=== PATIENT | male | born 1960 | race Caucasian/White ===

== ENCOUNTER 2017-03-14 16:01 | Emergency (ER) | payer OTHER ==
--- NOTE | 2017-03-14 16:42 | EDPHY ---
H & P Time Seen by Provider: 03/14/17 16:28 HPI/ROS: CHIEF COMPLAINT: Difficulty staying awake. HISTORY OF PRESENT ILLNESS: This patient is a 56 year old male complaining of fatigue and difficulty staying awake since yesterday. He has a history of pulmonary embolism, and has right posterior shoulder pain similar to his prior PE, which began around the time of his arrival here. He generally take naps due to a difficult work schedule, but states his current fatigue feels different and he is sleeping much more than usual. No chest pain or shortness of breath. No recent illness or changes in medication. He had a left leg ultrasound two months ago following an episode of calf pain which was negative for DVT. REVIEW OF SYSTEMS: Constitutional: No fever, no chills Eyes: No visual changes ENT: No sore throat Respiratory: No cough, no shortness of breath Cardiac: No chest pain Gastrointestinal: No nausea, no vomiting, no abdominal pain Genitourinary: No hematuria, no dysuria Musculoskeletal: No leg pain or swelling Skin: No rash Neurological: No headache, no numbness, no weakness Psychiatric: No depression Past Medical/Surgical History: 1. Pulmonary embolism (formerly on Coumadin, not currently anticoagulated) 2. Pneumonia 3. GERD 4. Hypertension (Lisinopril) 5. Hyperlipidemia (Atorvastatin) 5. Bipolar (Trileptal) 6. Depression (Effexor) 7. Cholecystectomy Social History: at bedside. Smoking Status: Never smoked Physical Exam: General Appearance: Alert, pleasant Eyes: Pupils equal and round, no conjunctival pallor or injection ENT, Mouth: Mucous membranes moist Neck: Normal inspection Respiratory: Lungs are clear to auscultation Cardiovascular: Regular rate and rhythm Gastrointestinal: Abdomen is soft and non- tender Neurological: A&O, nonfocal, normal gait Skin: Warm and dry, no rash Extremities: Nontender, no pedal edema Psychiatric: Mood and affect normal Constitutional: Initial Vital Signs Temperature (C) 36.5 C 03/14/17 16:01 Heart Rate 82 03/14/17 16:01 Respiratory Rate 18 03/14/17 16:01 Blood Pressure 119/68 03/14/17 16:01 O2 Sat (%) 95 03/14/17 16:01 O2 Delivery Mode Room Air Allergies/Adverse Reactions: No Known Allergies Allergy (Verified 03/14/17 16:15) Home Medications: Medication Instructions Recorded Lansoprazole [Lansoprazole 30 mg 30 mg PO DAILY@32904/13/15 tab] Oxcarbazepine [Trileptal] 600 mg PO BID@04/13/15 Venlafaxine Xr [Effexor Xr 75MG 75 mg PO DAILY@32904/13/15 (*)] lamOTRIGine [Lamotrigine] 200 mg PO DAILY@32904/13/15 Albuterol [Proventil Inhaler HFA 2 puffs IH Q4HRS PRN 05/15/16 (*)] Atorvastatin Calcium [Lipitor 40 40 mg PO DAILY@212905/15/16 mg (*)] Cholecalciferol Vit D3 [Vitamin D3 4,000 units PO DAILY@32905/15/16 (*)] Fish Oil/Dha/Epa [Fish Oil 1,200 1 each PO BID@329,212905/15/16 mg Fish Oil] Lisinopril [Zestril 40 mg (*)] 40 mg PO DAILY@212905/15/16 Acetaminophen [Tylenol 325mg (*)] 650 mg PO Q4 PRN #0 tab 05/16/16 Medical Decision Making - Diagnostics Imaging: Discussed imaging studies w/ call center representative Radiologist ED Course/Re-evaluation: 56 year old male presenting with two day history of fatigue. In the past, fatigue has been a presenting symptom of medical illness for him, for instance when he had a pulmonary embolism. Given that he has similar right shoulder pain to his prior PE, CT pulmonary angiogram ordered to rule out PE. 17:50 No evidence of PE on CT scan. Reassessed patient. CT results discussed. Plan to discharge home in good condition. He will follow up with his primary care provider Thursday for continuing symptoms. The patient is comfortable with this plan. Differential Diagnosis: Includes but not limited to pulmonary embolism, electrolyte imbalance, infectious processes, medication effect. - Data Points Laboratory Results: Laboratory Results 03/14/17 16:35 03/14/17 16:35 Departure - Departure Disposition: Home, Routine, Self-Care Clinical Impression: Fatigue Condition: Good Instructions: Fatigue (ED) Additional Instructions: 1. Follow up with your primary care provider on Thursday if your fatigue persists. 2. Return to the Emergency Department if you develop shortness of breath, chest pain, fever, or other worsening of condition. Referrals: Zee Nunez, PAC [Primary Care Provider] - As per Instructions Report Scribed for: Lanie Morris Report Scribed by: Phoebe Atwood Date of Report: 03/14/17 Time of Report: 17:52 Physician Review and Approval Statement: 03/14/17 17:52 Portions of this note were transcribed by a district medical examiner. I personally performed a history, physical exam, medical decision making, and confirmed accuracy of information the transcribed note.
[2017-03-14 16:51] LABS: % IMMATURE GRANULYOCYTES 0.2 % (0.0-1.1); ABSOLUTE IMMATURE GRANULOCYTES 0.01 10^3/uL (0.00-0.10); ADD DIFF? NO; ADD MORPH? NO; ADD SCAN? NO; ATYPICAL LYMPHOCYTE FLAG 10 (0-99); FRAGMENT RBC FLAG 0 (0-99); HEMATOCRIT 41.1 % (40.0-51.0); HEMOGLOBIN 14.4 g/dL (13.7-17.5); LEFT SHIFT FLG 0 (0-99); LIPEMIA HEMOLYSIS FLAG 90 (0-99); MEAN CELL HEMOGLOBIN 32.1 pg (27.9-34.1); MEAN CELL VOLUME 91.7 fL (81.5-99.8); PLATELET CLUMPS FLAG 0 (0-99); PLATELET COUNT 192 10^3/uL (150-400); RED BLOOD CELL COUNT 4.48 10^6/uL (4.40-6.38)
[2017-03-14 17:01] LABS: ANION GAP 13 mEq/L (8-16); CALCIUM 9.7 mg/dL (8.5-10.4); CARBON DIOXIDE 23 mEq/l (22-31); CHLORIDE 104 mEq/L (97-110); GLOMERULAR FILTRATION RATE > 60; GLUCOSE 110 mg/dL (70-100); SODIUM 140 mEq/L (134-144)
[2017-03-14] MEDS ORDERED: IOPAMIDOL (ISOVUE 370) 100 ML BTL IV ONE (17:05)
[2017-03-14 18:18] VITALS: BP 126/72; PULSE 66; RESP 15; TEMP 97.5; O2SAT 94
== END 2017-03-14 18:24 | disposition home or self-care (01) ==
DX: R53.83 Other fatigue (principal); I10 Essential (primary) hypertension
CPT/HCPCS: Q9967